=== PATIENT | male | born 1985 | race American Indian/Alaskan Native ===

== ENCOUNTER 2020-02-12 16:12 | Emergency (ER) | payer SELFPAY ==
[2020-02-12] MEDS ORDERED: Ibuprofen 200 MG TAB ONE (16:39)
== END 2020-02-12 16:45 | disposition home or self-care (01) ==
LOC: NAV ERS 16:12
DX: S29.012A Strain of muscle and tendon of back wall of thorax, initial encounter (principal); V53.5XXA Driver of pick-up truck or van injured in collision with car, pick-up truck or van in traffic accident, initial encounter; Y92.411 Interstate highway as the place of occurrence of the external cause
CPT/HCPCS: 99283